=== PATIENT | female | born 1965 | race Caucasian/White ===

== ENCOUNTER 2020-07-14 15:53 | Emergency (ER) | payer OTHER ==
--- NOTE | 2020-07-14 16:19 | EDM.PDOC ---
ED HPI GENERAL MEDICAL PROBLEM - General Chief Complaint: Lower Extremity Injury/Pain Stated Complaint: SWELLING RT FOOT/PAIN Time Seen by Provider: 07/14/20 16:12 Source of Information: Reports: Patient, Old Records, Provider History Limitations: Reports: No Limitations - History of Present Illness INITIAL COMMENTS - FREE TEXT/NARRATIVE: Was seen a couple of times recently as a new patient at the local [facility] for among other things mid foot pain. She was given prednisone with transient improvement. Per her provider Mayra called the clinic today to ask to be seen by Podiatry in [place] instead of [place] and then self referred to the ER. Labs on her last encounter included an elevated CRP of 15, a normal Uric Acid level, WBC ct of 12, and a negative SHANNON titer. Also had an X-ray of the foot 07/04/20 that showed some degen changes only. No hx of gout, does drink about 6 alcoholic drinks per day. Patient says she has an appt tomorrow with Podiatry in . Onset: Gradual Duration: Week(s): (about 2 weeks), Getting Worse Location: Reports: Lower Extremity, Right Quality: Reports: Ache Severity: Severe Improves with: Reports: Medication Worsens with: Reports: Other (time, touching, weight bearing) Context: Reports: Other (See HPI) Associated Symptoms: Reports: No Other Symptoms. Denies: Diaphoresis, Fever/Chills Treatments COLD TYPE ARTIST: Reports: Other (see below) (ibuprofen 600 mg ) - Related Data Allergies Allergy/AdvReac Type Severity Reaction Status Date / Time nickel AdvReac Rash Verified 07/14/20 16:09 Sulfa (Sulfonamide AdvReac Rash Verified 07/14/20 16:09 Antibiotics) Home Meds: Home Meds Acetaminophen [Tylenol Arthritis] 2 tab PO Q6H 07/14/20 [History] Acetaminophen/HYDROcodone [[place] 325-5 MG] 1 - 2 tab PO Q6H PRN #15 tab 07/14/20 [Rx] Clindamycin HCl 300 mg PO QID #39 capsule 07/14/20 [Rx] Clobetasol [Clobetasol 0.05%] 1 applic TOP BID 07/14/20 [History] Diclofenac Sodium [Voltaren] 75 mg PO BIDMEALS 07/14/20 [History] Ibuprofen 600 mg PO Q4H 07/14/20 [History] Melatonin 10 mg PO BEDTIME 07/14/20 [History] cephALEXin [Cephalexin] 500 mg PO QID #38 tablet 07/14/20 [Rx] predniSONE [Prednisone] 20 mg PO ASDIRECTED 07/14/20 [History] Review of Systems - Review of Systems Review Of Systems: See Below Constitutional: Reports: No Symptoms. Denies: Chills, Fever Musculoskeletal: Reports: Foot Pain (R foot) Skin: Reports: Erythema (dorsum of R mid foot) Neurological: Reports: No Symptoms ED EXAM, GENERAL - Physical Exam Exam: See Below Exam Limited By: No Limitations General Appearance: Alert, WD/WN, Mild Distress Extremities: No Pedal Edema, Limited Range of Motion (due to pain), Increased Warmth (dorsum of R foot), Redness (dorsum of R foot). No: Normal Inspection, Normal Range of Motion, Pedal Edema, Isidra's Sign Neurological: Alert, Oriented, CN II-XII Intact, Normal Cognition, No Motor/Sensory Deficits Psychiatric: Normal Affect, Normal Mood Skin Exam: Warm, Dry, Intact, Normal Color, Erythema (dorsum of R foot only), Increased Warmth (dorsum of R foot), Rash (sole of that foot, dishydrotic eczema). No: No Rash (dishydroditic eczema of that foot around the sole and lower aspect of foot, chronic, worse lately), Lymphangitis, Wound/Incision Course - Vital Signs Last Recorded V/S: Last Vital Signs Temp 36.6 C 07/14/20 16:16 Pulse 91 07/14/20 16:16 Resp 22 H 07/14/20 16:16 BP 167/90 H 07/14/20 16:16 Pulse Ox 95 07/14/20 16:16 - Orders/Labs/Meds Labs: Laboratory Tests 07/14/20 Range/Units 16:21 C-Reactive Protein 3.85 H (0.0-0.3) mg/dL Meds: Medications Discontinued Medications Generic Name Dose Route Start Last Admin Trade Name Freq PRN Reason Stop Dose Admin Oxycodone/Acetaminophen 1 tab 07/14/20 16:20 07/14/20 16:23 Acetaminophen/Oxycodone 325-5 Mg Tab PO 07/14/20 16:21 1 tab ONETIME STA Administration - Radiology Interpretation Free Text/Narrative:: R foot CT scan-cellulitis, no osteomyelitis CT Results Date: 07/14/20 Departure - Departure Time of Disposition: 18:35 Disposition: Home, Self-Care 01 Condition: Fair Clinical Impression: Cellulitis of foot - Discharge Information *PRESCRIPTION DRUG MONITORING PROGRAM REVIEWED*: No *COPY OF PRESCRIPTION DRUG MONITORING REPORT IN PATIENT CHRISTIAN: No Instructions: Cellulitis, Adult Referrals: Arabella Gage PA-C [Primary Care Provider] - Forms: ED Department Discharge Additional Instructions: Take clindamycin every 6 hrs, next dose at [place]. Cephalexin every 6 hrs next dose at 6 pm tomorrow laura. Elevate your foot. Crutch walking and no weight bearing. Take acetaminophen OR [place] for pain relief as needed. Recheck with your provider on Saturday, return here if worse over the weekend. Sepsis Event Note (ED) - Focused Exam Vital Signs: Vital Signs Temp Pulse Resp BP Pulse Ox 07/14/20 16:16 36.6 C 91 22 H 167/90 H 95 07/14/20 16:08 36.6 C 91 22 H 167/90 H 95
[2020-07-14] MEDS ORDERED: Acetaminophen/oxyCODONE 325-5 MG Tab PO STA (16:20)
--- NOTE | 2020-07-14 17:54 | CRLCT ---
Indication: Pain and swelling with no known injury. Possible osteomyelitis. Technique: Noncontrast spiral CT examination of the right foot is performed to obtain 1 millimeter thick sagittal, axial, and coronal sections with soft tissue and bone algorithm. Please note that all CT scans at this facility use dose modulation, iterative reconstruction, and/or weight-based dosing when appropriate to reduce radiation dose to as low as reasonably achievable. Comparison: None available Findings: There is moderate soft tissue swelling over the lateral dorsal mid foot, overlying the cuboid primarily. This is not associated with any soft tissue gas, foreign body, or osseous destruction to suggest osteomyelitis. The findings are that of moderate cellulitis. There is soft tissue swelling and stranding along the plantar aspect of the foot overlying the medial sesamoid of the base of the great toe and along the medial aspect of the head of the 1st metatarsal. This is not associated with any osseous destruction to suggest osteomyelitis. There is no sign of any soft tissue gas or foreign body in this region. This is consistent with mild cellulitis. Similar increased soft tissue density is seen along the plantar aspect of the head of the 5th metatarsal, also without osseous destruction, soft tissue gas, or foreign body. This is consistent with mild cellulitis. There is mild diffuse soft tissue swelling of the plantar aspect of the foot with mild edema. This is not associated with any soft tissue gas or foreign body. The osseous structures are intact, with no sign of fracture or dislocation. 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 There is mild primary osteoarthritis of the 2nd TMT joint with moderate subchondral cyst formation. Impression: Moderate cellulitis dorsal to the cuboid with no sign of associated abscess or osteomyelitis. Mild cellulitis adjacent to the heads of the 1st and 5th metatarsals with no sign of abscess or osteomyelitis. Mild diffuse subcutaneous edema in the foot. 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 Please note that all CT scans at this facility use dose modulation, iterative reconstruction, and/or weight-based dosing when appropriate to reduce radiation dose to as low as reasonably achievable. Dictated by Dennis Britton MD @ 07/14/2020 5:53:[address] Dennis Britton @ Jul 14 2020 5:53PM
[2020-07-14] MEDS ORDERED: cefTRIAXone 2 GM in Sodium Chloride 0.9% 50 ML IV ONE (18:00)
[2020-07-14] MEDS ORDERED: Sulfamethoxazole/Trimethoprim 800-160 MG Tab PO ONE (18:01)
[2020-07-14] MEDS ORDERED: Clindamycin HCl 150 MG Cap PO ONE (18:06)
== END 2020-07-14 18:55 | disposition home or self-care (01) ==
LOC: JP.ED 15:53 → EDSEX 15:53 → JP.ED 18:55
DX: L03.115 Cellulitis of right lower limb (principal); Z91.048 Other nonmedicinal substance allergy status; Z88.2 Allergy status to sulfonamides
CPT/HCPCS: 36415; 73700; 86140; 96365; 99284; A9270; J0696

== ENCOUNTER 2021-11-01 04:10 | Emergency (ER) | payer SELFPAY ==
[2021-11-01] MEDS ORDERED: Acetaminophen/HYDROcodone 325-5 MG Tab PO ONE (04:33)
== END 2021-11-01 05:55 | disposition home or self-care (01) ==
LOC: JP.ED 04:10
DX: R10.9 Unspecified abdominal pain (principal); R03.0 Elevated blood-pressure reading, without diagnosis of hypertension; M54.50 Low back pain, unspecified; F17.210 Nicotine dependence, cigarettes, uncomplicated; E66.9 Obesity, unspecified; Z68.32 Body mass index [BMI] 32.0-32.9, adult; Z91.048 Other nonmedicinal substance allergy status; Z88.2 Allergy status to sulfonamides; Z90.49 Acquired absence of other specified parts of digestive tract
CPT/HCPCS: 74176; 81001; 99284; A9270

== ENCOUNTER → 2023-11-20 | Day surgery (SDC) | payer OTHER ==
[~2023-11-20] MED LIST: Midazolam 1 MG/ML 2 ML SDV ONE; Propofol 200 MG/20 ML SDV ONE; fentaNYL 50 MCG/ML SDV ONE
[2023-11-20] MEDS: Sodium Chloride 0.9% 1,000 ML IV SCH (08:43)
== END ==
LOC: JP.SDS 08:04
PROVIDERS: ATTEND Surgery
DX: Z12.11 Encounter for screening for malignant neoplasm of colon (principal); K57.30 Diverticulosis of large intestine without perforation or abscess without bleeding; F17.200 Nicotine dependence, unspecified, uncomplicated
CPT/HCPCS: 00812-QZ; J2250; J2704; J3010; J7030